=== PATIENT | male | born 1970 | race Caucasian/White ===

== ENCOUNTER → 2018-07-26 | Outpatient (CLI) | payer BC ==
[2018-07-26 13:35] LABS: Basophils % (A) 1 %; Eosinophils # (A) 0.1 k/uL (0-0.7); Eosinophils % (A) 1 %; HCT 46.1 % (39.0-53.0); HGB 14.6 gm/dL (13.0-17.5); Lymphocytes # (A) 1.3 k/uL (1.0-4.8); Lymphocytes % (A) 24 %; MCH 28.6 pg (25.0-35.0); MCHC 31.6 g/dL (31.0-37.0); MCV 90.5 fL (80.0-100.0); Mean Platelet Volume 6.4; Monocytes # (A) 0.3 k/uL (0-1.0); Monocytes % (A) 6 %; Neutrophils # (A) 3.6 k/uL (1.3-7.7); Neutrophils % (A) 66 %; Platelet Count 245 k/uL (150-450); RDW 12.2 % (11.5-15.5); WBC 5.4 k/uL (3.8-10.6)
== END | disposition home or self-care (01) ==
LOC: LABPAT 12:34
PROVIDERS: ATTEND Orthopaedic Surgery
DX: Z01.812 Encounter for preprocedural laboratory examination (principal)
CPT/HCPCS: 36415; 85025

== ENCOUNTER 2018-07-28 12:15 | Day surgery (SDC) | payer BC ==
--- NOTE | 2018-07-27 13:08 | HP ---
HISTORY AND PHYSICAL DATE OF SERVICE: 07/28/2018 Mich Hernandez is a 47-year-old patient seen with a displaced left ankle lateral malleolus fracture. Recommended open reduction, internal fixation. The procedure, risks, complications, benefits and recovery were discussed. He was agreeable, consent was obtained. PAST MEDICAL HISTORY: Noncontributory. PAST SURGICAL HISTORY: Knee arthroscopy and tendon repair. DAILY MEDICATIONS: None. SOCIAL HISTORY: He denies tobacco use. PHYSICAL EVALUATION OF HIS LEFT ANKLE: There is diffuse tenderness along the lateral malleolus as well as the medial deltoid ligament. He has limited range of motion secondary to pain. There is mild to moderate swelling on the lateral side and mild swelling on the medial side. Achilles appears intact. He has good perfusion sensation distally. Radiographs of left ankle revealed a displaced lateral malleolar fracture with some mild widening of the medial mortise. IMPRESSION: Displaced left ankle lateral malleolus fracture. PLAN: Open reduction, internal fixation, left ankle lateral malleolar fracture. MMODL / IJN: [id number] /
[~2018-07-28 12:15] MED LIST: HYDROmorphone 0.5 MG/0.5 ML SYRINGE IVP PRN; LIDOCAINE 1% 20 ML VIAL (10MG/ML) FOR IV START INTRADERMA PRN; ONDANSETRON 4 MG/2 ML VIAL IVP ONE; ceFAZolin IN SWFI 2 GM/20 ML SYRINGE IVP ONE
[2018-07-28] MEDS: LACTATED RINGERS 1,000 ML IV SCH (13:56)
[2018-07-28] MEDS ORDERED: ceFAZolin 1,000 MG in SODIUM CHLORIDE 0.9% 1,000 ML IRRIGATION ONE ×4 (14:37)
[2018-07-28] MEDS ORDERED: fentaNYL (PF) 50 MCG/ML 2 ML AMP IVP ONE (14:39)
[2018-07-28] MEDS ORDERED: MIDAZOLAM 2 MG/2 ML VIAL IVP ONE (14:39)
[2018-07-28] MEDS ORDERED: LIDOCAINE 1%-EPI 1:100,000 20 ML VIAL ONE (15:01)
[2018-07-28] MEDS ORDERED: PROPOFOL 10 MG/ML 20 ML VIAL IV ONE (15:01)
[2018-07-28] MEDS ORDERED: fentaNYL (PF) 50 MCG/ML 2 ML AMP ONE (15:01)
[2018-07-28] MEDS ORDERED: ROPIVACAINE 5 MG/ML 30 ML VIAL ONE (15:01)
[2018-07-28] MEDS ORDERED: MIDAZOLAM 2 MG/2 ML VIAL ONE (15:01)
--- NOTE | 2018-07-28 15:14 | P.ONQ ---
Anesthesiology Proc Note - PNB - Peripheral Nerve Block Performed Left Popliteal Single Time Out Performed: Yes Procedure Start Time: 14:30 Indication: Acute Post-Operative Pain Sedation Type: Sedate with meaningful contact maintained Preparation: Sterile Prep Position: Supine (lateral) Catheter: None Needle Types: Other (see comment) (Pajunk) Needle Size: 50mm (2") Needle Gauge: 21 Technique: Ultrasound Injectate: Other (see comment) (0.25% ropivacaine/0.5% lidocaine 25 mL) Adjunct: Epinephrine (see comment for dilution ratio) (1:200,000) Blood Aspirated: No Pain Paresthesia on Injection Noted: No Resistance on Injection: Normal Events: Uneventful and Well Tolerated
[2018-07-28] MEDS ORDERED: ONDANSETRON 4 MG/2 ML VIAL IVP PRN (15:16)
[2018-07-28] MEDS ORDERED: HYDROmorphone 0.5 MG/0.5 ML SYRINGE IVP PRN (15:16)
[2018-07-28] MEDS ORDERED: HYDROcodone/APAP 7.5-325MG 1 EACH TAB PO PRN (15:21)
[2018-07-28] MEDS ORDERED: ACETAMINOPHEN TAB 325 MG TAB PO PRN (15:23)
--- NOTE | 2018-07-28 15:23 | P.ONQ ---
Anesthesiology Proc Note - PNB - Peripheral Nerve Block Performed Left Saphenous/Obturator Single Time Out Performed: Yes Procedure Start Time: 14:40 Indication: Acute Post-Operative Pain Specifically requested for management of pain by DrNick: Daniel Zapata Sedation Type: Sedate with meaningful contact maintained Preparation: Sterile Prep Position: Supine Catheter: None Needle Types: Other (see comment) (Pajunk) Needle Size: 100mm (4") Needle Gauge: 21 Technique: Ultrasound (0.25% ropivacaine/0.5% lidocaine 20 mL's) Injectate: Other (see comment) (15) Adjunct: Epinephrine (see comment for dilution ratio) (1:200,000) Blood Aspirated: No Pain Paresthesia on Injection Noted: No Resistance on Injection: Normal Events: Uneventful and Well Tolerated
[2018-07-28] MEDS ORDERED: LACTATED RINGERS 1,000 ML IV ONE (16:25)
--- NOTE | 2018-07-28 16:34 | FL ---
Fluoroscopy HISTORY: Fracture 9 seconds fluoroscopy time supplied to the referring clinician. 3 intraoperative C-arm images docume nt the procedure. See dictated report from orthopedic surgery.
--- NOTE | 2018-07-28 16:35 | XR ---
Limited left ankle HISTORY: Fracture 3 intraoperative C-arm images document the procedure.
--- NOTE | 2018-07-28 16:41 | P.OP ---
Date of Procedure: 07/28/18 Preoperative Diagnosis: Left ankle displaced lateral malleolus fracture Postoperative Diagnosis: Same Procedure(s) Performed: Open reduction and internal fixation left ankle lateral malleolus fracture Anesthesia: JESSICA, regional (Adductor canal block) Surgeon: Daniel Zapata Estimated Blood Loss (ml): 25 Pathology: none sent Condition: stable Disposition: PACU Indications for Procedure: 47-year-old patient seen with a left ankle displaced lateral malleolus fracture. I recommended open reduction and internal fixation. He was agreeable, consent was obtained. Operative Findings: See description of procedure Description of Procedure: The patient was taken to the operative suite. The patient received preoperative IV antibiotics. The patient had a adductor canal block performed by the department of anesthesia for postoperative pain control. The patient underwent a general anesthetic by the department of anesthesia. A well-padded tourniquet was placed proximal left thigh. The left lower extremity was prepped and draped in the normal sterile orthopedic fashion. The extremity was elevated and tourniquet insufflated to 350. An incision was made over the area of the lateral malleolus sharply through skin. Dissection was taken down to the lateral malleolus. Hemostasis achieved electrocautery. The fracture was identified. It was displaced. The fracture was reduced with a bone reduction clamp. We then contoured a 7 hole one third semitubular plate appropriately. Appropriate were drill holes were made proximally and distally. Appropriate length screws were inserted. All screws had good bite and purchase. The bone clamp was removed. The fracture appeared well reduced and stable. The C-arm was brought into the operative field confirming good reduction of the fracture. I had restored the mortise and what and it was now congruent. Spot films were obtained intraoperatively to document this. The C-arm was pulled back. The wound was irrigated with saline solution. Subcu soft tissues were repaired with 2-0 Vicryl. The skin is was approximated with skin alma rosa. Sterile dressings were applied. The tourniquet was released and immediate capillary refill was noted. The patient now placed into a well-padded modified bulky Mckeon splint with ankle in neutral position. The patient was then awakened, transferred to a bed and then recovery stable condition.
[2018-07-28 17:31] VITALS: BMI 29.9
[2018-07-28] MEDS: ceFAZolin IN SWFI 2 GM/20 ML SYRINGE IVP SCH (23:15)
[2018-07-29] MEDS: HYDROmorphone 1 MG/ML 1 ML SYRINGE IVP PRN ×2 (01:37→04:56)
[2018-07-29] MEDS: LACTATED RINGERS 1,000 ML IV SCH (02:40)
[2018-07-29] MEDS: HYDROcodone/APAP 7.5-325MG 1 EACH TAB PO PRN ×2 (06:02→10:53)
[2018-07-29] MEDS: ceFAZolin IN SWFI 2 GM/20 ML SYRINGE IVP SCH (07:17)
[2018-07-29 08:45] VITALS: BP 107/62; PULSE 69; RESP 16; TEMP 97.3
--- NOTE | 2018-07-29 09:58 | P.PN ---
Subjective Progress Note Date: 07/29/18 Principal diagnosis: Status post ORIF left ankle lateral malleolus fracture Patient evaluated today at bedside, he is resting comfortably. He did notice some acute pain after surgery yesterday, this has improved. He denies any chest pain or shortness of breath, fever or chills. Objective - Vital Signs Vital signs: Vital Signs Temp 97.3 F L 07/29/18 08:00 Pulse 69 07/29/18 08:00 Resp 16 07/29/18 08:00 BP 107/62 07/29/18 08:00 Pulse Ox 96 07/29/18 07:00 Intake & Output 07/28/18 07/29/18 07/29/18 18:59 06:59 18:59 Intake Total 1901 520 Output Total 30 400 Balance 1871 120 Intake: IV 1901 Intake, IV Titration 40 Amount Lactated Ringers 1,000 ml 40 @ 20 mls/hr IV .Q24H [facility] Rx#:[id number] Oral 480 Output: Urine 400 Estimated Blood Loss 30 Other: # Voids 1 - Exam Left lower extremity: Posterior splint is in good position and condition, soft tissue swelling noted in the toes. He is able wiggle the toes and minimal difficulty. Sensation to light touch both proximal distal to splint are intact. Assessment and Plan Plan: Assessment: Postoperative day 1 status post ORIF left ankle displaced lateral malleolus fracture Plan: Pain control, plan for discharge on oral medication GI and DVT prophylaxis, aspirin 325 mg daily for 2-3 weeks Cast instructions were discussed Icing and elevating techniques were discussed Nonweightbearing of the lower extremity Plan for follow-up at [facility] at 2 weeks Time with Patient: Less than 30
--- NOTE | 2018-07-29 10:05 | P.DS ---
Providers Date of admission: 07/28/2018 Expected date of discharge: 07/29/18 Attending physician: Daniel Zapata Primary care physician: Stated None Hospital Course: Date of admission: 07/28/2018 Date of discharge: 07/29/2018 Admission diagnosis: Status post ORIF left ankle lateral malleolus fracture Discharge diagnosis: Same Attending physician: Dr. Zapata Surgical procedures: ORIF left ankle lateral malleolus fracture Brief history: Patient is a 47-year-old male with a history of injury involving his left ankle. Patient was evaluated in the outpatient setting by Dr. Zapata. It was determined that surgical intervention would be needed for fixation of the left ankle fracture. He was scheduled for surgery on 07/29/2018. Hospital course: Details of patient's surgery can be found in operative report. Patient tolerated the procedure well and was subsequently transported to orthopedic floor. Patient's orthopeidc and medical care was provided daily. Patient had daily laboratory tests performed for evaluation of overall blood counts. Patient had daily physical therapy to include strengthening range of motion as well as education with walker ambulation. Patient was noted to have a relatively uneventful postoperative course. Patient reported satisfactory pain control with oral pain medications by postoperative day 0. Patient showed satisfactory progress with physical therapy. Patient moved steadily through the program and had no difficulty meeting the goals by postoperative day 1. Given patient's otherwise satisfactory course and having met physical therapy goals, plan is to discharge patient home on postoperative day 1. Discharge condition/disposition: Patient will be discharged home in stable condition. Discharge medications: Instructions are given on resumption of patient's normal daily medications per primary care recommendation, in addition patient will be prescribed [place] 7.5 mg/325 mg, aspirin 325 mg. Discharge instructions: 1. Wound care and infection precautions, keep incision dry and covered while showering, no lotions, creams, moisturizers. No soaking, tubs, pools, hottubs. Do not scrub over the incision. 2. Nonweightbearing left lower extremity, utilize crutches 3. Ice and elevate when necessary. Do not exceed 20 minutes per hour with ice pack. 4. Utilize compression sleeve until seen at first follow up appointment. 5. Pain meds and anticoagulants per prescription. 6. Pain medication has potential to cause constipation. Increase oral fluid and fiber intake. Contact primary care provider if you have not had a bowel movement within 48 hours after discharge 7. Follow up in office at 2 weeks postop with Narciso Chandler PA-C 8. Follow up with your primary care doctor 7-10 days after discharge. 9. Contact [facility] with any questions, . Procedures: Open reduction internal fixation left ankle lateral malleolus fracture Patient Condition at Discharge: Good Plan - Discharge Summary Discharge Rx Participant: No New Discharge Prescriptions: New Aspirin 325 mg PO DAILY #30 tab HYDROcodone/APAP 7.5-325MG [[place] 7.5] 1 - 2 each PO Q6HR PRN #56 tab PRN Reason: Pain Discharge Medication List Aspirin 325 mg PO DAILY #30 tab 07/29/18 [Rx] HYDROcodone/APAP 7.5-325MG [[place] 7.5] 1 - 2 each PO Q6HR PRN #56 tab 07/29/18 [Rx] Follow up Appointment(s)/Referral(s): Raffi Chandler PAC [PHYSICIAN IMAGING MANAGER] - 2 Weeks Activity/Diet/Wound Care/Special Instructions: Discharge instructions: 1. Nonweightbearing left lower extremity 2. Do not remove splint, keep splint covered and dry while showering 3. Ice and elevate often 4. Pain medication as needed 5. Aspirin 325 mg daily for DVT prophylaxis 6. Plan for follow-up at [facility] in 2 weeks Discharge Disposition: HOME SELF-CARE
== END 2018-07-29 12:32 | disposition home or self-care (01) ==
LOC: OR 12:15 → 4SSUR 16:47 → OR 07-29 12:32
PROVIDERS: ATTEND Orthopaedic Surgery
DX: S82.62XA Displaced fracture of lateral malleolus of left fibula, initial encounter for closed fracture (principal); X58.XXXA Exposure to other specified factors, initial encounter
CPT/HCPCS: 27792; 97161; 64447; 64450; 73600; C1713; J2250; J2405; J0690 ×3; J3010; J1170; J2795; J2704; 64493

== ENCOUNTER → 2018-10-18 | Outpatient (CLI) | payer BC ==
--- NOTE | 2018-10-18 09:04 | XR ---
EXAMINATION TYPE: XR ankle complete LT DATE OF EXAM: 10/18/2018 COMPARISON: NONE HISTORY: Pain FINDINGS: Three views of the ankle demonstrate the ankle mortise to be intact and symmetric. The joint spaces are preserved. The osseous structures are intact. There is postsurgical change involving the fibula . There still remains slight cortical disruption posteriorly with incomplete healing of the fracture. IMPRESSION: 1. No definite acute fracture or dislocation, if symptoms persist follow-up study in 7 to 10 days wou ld be suggested. 2. Postsurgical changes.
== END | disposition home or self-care (01) ==
LOC: RADXRMAIN 08:36
PROVIDERS: ATTEND Orthopaedic Surgery
DX: M25.572 Pain in left ankle and joints of left foot (principal); Z98.890 Other specified postprocedural states

== ENCOUNTER → 2021-05-29 | Outpatient (CLI) | payer BC ==
--- NOTE | 2021-05-29 10:46 | CT ---
EXAMINATION TYPE: CT abdomen pelvis wo con DATE OF EXAM: 05/29/2021 HISTORY: gross hematuria CT DLP: 815 mGycm. Automated Exposure Control for Dose Reduction was Utilized. TECHNIQUE: CT scan of the abdomen and pelvis is performed without oral or IV contrast. COMPARISON: NONE FINDINGS: Within the limitations of a non-contrast study, the following observations are made. LUNG BASES: Mild bilateral left basilar linear scarring and/or atelectasis. LIVER/GB: No significant abnormality is appreciated. PANCREAS: No significant abnormality is seen. SPLEEN: No significant abnormality is seen. ADRENALS: No significant abnormality is seen. KIDNEYS: No renal stones or hydronephrosis is seen bilaterally. No intraluminal calculus in the bladd er. BOWEL: Normal-appearing appendix from cecum. No suspicious small or large bowel dilatation. Medial de viated left colon incidentally noted. GENITAL ORGANS: Enlarged prostate consistent with BPH bulging on bladder base. Adjacent scattered markie cified pelvic phleboliths. LYMPH NODES: No greater than 1cm abdominal or pelvic lymph nodes are appreciated. OSSEOUS STRUCTURES: No significant abnormality is seen. OTHER: No significant additional abnormality is seen. IMPRESSION: No renal stones or hydronephrosis seen bilaterally. Source of hematuria not identified. I f symptoms persist further investigation with CT urogram would be warranted. Enlarged prostate consis tent with BPH is noted.
== END | disposition home or self-care (01) ==
LOC: RADCTMAIN 10:07
PROVIDERS: ATTEND Urology
DX: N40.0 Benign prostatic hyperplasia without lower urinary tract symptoms (principal); R31.0 Gross hematuria
CPT/HCPCS: 74176

== ENCOUNTER → 2021-06-11 | Outpatient (CLI) | payer BC ==
--- NOTE | 2021-06-12 09:38 | CT ---
EXAMINATION TYPE: CT abdomen pelvis w con DATE OF EXAM: 06/11/2021 COMPARISON: 05/29/2021 HISTORY: 50-year-old male R31.0, gross hematuria TECHNIQUE: Contiguous axial scanning of the abdomen and pelvis following administration of 100 ml Iso leora 300 IV contrast. Delayed images through the kidneys and coronal/sagittal reconstructions perform ed. CT DLP: 1120.7 mGycm Automated exposure control for dose reduction was used. FINDINGS: Heart upper limits of normal in size without pericardial effusion. Strandy atelectasis at the lower l ungs. No pleural effusion. Tiny hiatal hernia. No focal liver lesion. No biliary ductal dilatation. Portal venous system is patent. Gallbladder, adrenal glands, kidneys, spleen, and pancreas within normal limits. A couple small infer ior splenules. Symmetric uptake and excretion of contrast from the kidneys. No renal calculi or hydronephrosis seen. No suspicious renal mass identified. No dilated small bowel, free fluid, or free air. A couple prominent mid mesenteric lymph nodes measur ing up to 6 mm likely reactive/post inflammatory, axial image 46. Otherwise, no mesenteric or retrope ritoneal lymphadenopathy. Normal appendix. [id number] stool burden. Mildly redundant proximal sigmoid colon. No pericolon ic inflammatory change. Bladder urine distended. Prostate gland is enlarged measuring 5.6 cm wide. Multiple pelvic phlebolith s. No abnormal fluid collection in the pelvis or pelvic lymphadenopathy. Bones: Mild multilevel degenerative disc disease. Facet arthropathy lower lumbar spine. Mild degenera tive change of the hips. IMPRESSION: 1. PROSTATOMEGALY AT 5.6 CM WIDE. CORRELATE FOR POSSIBLE BPH. 2. NO SUSPICIOUS RENAL MASS. NO NEPHROLITHIASIS OR HYDRONEPHROSIS.
== END | disposition home or self-care (01) ==
LOC: RADCTMAIN 16:18
PROVIDERS: ATTEND Urology
DX: N40.0 Benign prostatic hyperplasia without lower urinary tract symptoms (principal)
CPT/HCPCS: 84153; 74177; 36415; Q9967